=== PATIENT | female | born 1955 | race Caucasian/White ===

== ENCOUNTER → 2018-03-29 15:06 | Outpatient (CLI) | payer OTHER, SELFPAY ==
[2018-03-29 18:05] LABS: Free T3 2.5 pg/mL (2.18-3.98); T4 Free Direct 0.98 ng/dL (0.76-1.46)
[2018-03-30 08:28] LABS: Vitamin D,25 Hydroxy 57.9 ng/mL (29.95-100.01)
== END ==
PROVIDERS: Family Provider Family Medicine; PCP Family Medicine; Visit Provider Family Medicine
DX: E03.9 Hypothyroidism, unspecified (principal)
CPT/HCPCS: 36415; 76536; 82306; 84439; 84443; 84481

== ENCOUNTER → 2018-06-07 16:17 | Outpatient (CLI) | payer OTHER, SELFPAY ==
--- NOTE | 2018-06-07 16:18 | BI_ITS ---
MAMMOGRAPHY - BILATERAL SCREENING REASON FOR EXAM: Female, 62 years old. Routine annual screening examination. PERTINENT HISTORY: Non-contributory. TECHNIQUE: Digital bilateral breast aubrey (3D mammographic acquisition) in the CC and MLO projections. 2-D mediolateral oblique (MLO) and craniocaudad (CC) views of both breasts were obtained. CAD: Full Field Digital Mammography with Computer Added Detection was performed. COMPARISON: Comparison is made with prior study dated May 24, 2017 and May 07, 2016. FINDINGS: Breast Composition: There are scattered areas of fibroglandular density. There are no dominant masses or suspicious calcifications. Stable appearance of the bilateral axillary lymph nodes. No other significant abnormalities are identified. There has been no significant change since the prior study. BI/SCREENING MAMM (CAD), BILAT IMPRESSION: Stable bilateral screening mammogram. Yearly follow-up mammogram recommended. (A) ASSESSMENT CATEGORY: BIRADS Category 2: Benign. A letter regarding these results will be sent to the patient by the facility within 30 days. Approximately 10% of breast cancers are not detected by mammography. A normal mammogram should not delay biopsy of a clinically suspicious abnormality. [id number] Electronically Signed: Karthikeyan Gupta MD at 8:17 EDT Tel [phone], Service support ,
== END ==
PROVIDERS: Family Provider Family Medicine; PCP Family Medicine; Referring Provider Obstetrics & Gynecology; Visit Provider Obstetrics & Gynecology
DX: Z12.31 Encounter for screening mammogram for malignant neoplasm of breast (principal)
CPT/HCPCS: 77063; 77067

== ENCOUNTER → 2019-04-04 14:12 | Outpatient (CLI) | payer OTHER, SELFPAY ==
--- NOTE | 2019-04-04 14:15 | US_ITS ---
STUDY: THYROID ULTRASOUND REASON FOR EXAM: Female, 63 years old. Nodule TECHNIQUE: Ultrasound evaluation of the thyroid was performed with real-time and static shafer-scale imaging. COMPARISON: 03/29/2018 FINDINGS: RIGHT LOBE: Previously removed LEFT LOBE: The left lobe of the thyroid gland measures 4.7 x 2.0 x 2.0 cm. There is a heterogeneous echotexture. 2 separate hyperechoic solid nodules, larger measures 7 mm, smaller 5 mm ISTHMUS: The isthmus measures 0.9 cm. There is a stable 1.4 x 1.5 x 0.9 cm isthmus nodule The regional lymph nodes are normal. US/Thyroid IMPRESSION: Previous removal of the right lobe of the thyroid Hypoechoic solid nodules in the left lobe since the previous study, larger measures 7 mm, smaller 5 mm. Six-month follow-up recommended to assure stability Stable 1.4 x 1.5 x 0.9 cm isthmus nodule Electronically Signed: Jesus Whitlock MD at 16:41 EDT , Service support ,
[2019-04-04 18:37] LABS: Anion Gap 5 (5-15); BUN 17 mg/dL (7-18); BUN/Creat Ratio 21.1 RATIO (10-20); Calcium,Total 8.9 mg/dL (8.5-10.1); Chloride 107 mmol/L (98-107); Cholesterol 238 mg/dL (200); EST Glomerular Filtration Rate 77 mL/min (>60); Est Glom Filt Rate - Afr Amer 93 mL/min (>60); Free T3 2.7 pg/mL (2.18-3.98); Glucose 97 mg/dL (74-106); High Density Lipoprotein 39 mg/dL; Potassium 4.1 mmol/L (3.5-5.1); Sodium Level 142 mmol/L (136-145); T4 Free Direct 1.01 ng/dL (0.76-1.46); Thyroid Stim Hormone (TSH) 1.63 uIU/mL (0.358-3.74); Triglycerides 417 mg/dL
== END ==
PROVIDERS: Family Provider Family Medicine; PCP Family Medicine; Referring Provider Family Medicine; Visit Provider Family Medicine
DX: E03.9 Hypothyroidism, unspecified (principal); E04.1 Nontoxic single thyroid nodule; Z13.220 Encounter for screening for lipoid disorders
CPT/HCPCS: 36415; 76536; 80048; 80061; 84439; 84443; 84481

== ENCOUNTER → 2019-04-22 08:10 | Outpatient (CLI) | payer OTHER, SELFPAY ==
[2019-04-22 09:45] LABS: Cholesterol 249 mg/dL (200); High Density Lipoprotein 47 mg/dL; Triglycerides 221 mg/dL; Very Low Density Lipoprotein 44 mg/dL (5-40)
== END ==
PROVIDERS: Family Provider Family Medicine; PCP Family Medicine; Referring Provider Family Medicine; Visit Provider Family Medicine
DX: E78.5 Hyperlipidemia, unspecified (principal)
CPT/HCPCS: 80061

== ENCOUNTER → 2019-06-09 14:46 | Outpatient (CLI) | payer OTHER, SELFPAY ==
--- NOTE | 2019-06-09 14:47 | BI_ITS ---
MAMMOGRAPHY - BILATERAL SCREENING REASON FOR EXAM: Female, 63 years old. Routine annual screening examination. PERTINENT HISTORY: Non-contributory. TECHNIQUE: Digital bilateral breast nereyda (3D mammographic acquisition) in the CC and MLO projections. 2-D mediolateral oblique (MLO) and craniocaudad (CC) views of both breasts were obtained. CAD: Full Field Digital Mammography with Computer Added Detection was performed. COMPARISON: Comparison is made with prior study dated June 07, 2018 and May 24, 2007. FINDINGS: Breast Composition: There are scattered areas of fibroglandular density. There are no dominant masses or suspicious calcifications. Stable benign-appearing bilateral axillary lymph nodes. No other significant abnormalities are identified. There has been no significant change since the prior study. BI/SCREEN MAMM (CAD) W/NEREYDA BILAT IMPRESSION: Stable bilateral screening mammogram. Yearly follow-up mammogram recommended. (A) ASSESSMENT CATEGORY: BIRADS Category 2: Benign. A letter regarding these results will be sent to the patient by the facility within 30 days. Approximately 10% of breast cancers are not detected by mammography. A normal mammogram should not delay biopsy of a clinically suspicious abnormality. [id number] Electronically Signed: Karthikeyan Gupta, at 8:54 EDT , Service support ,
== END ==
PROVIDERS: Family Provider Family Medicine; PCP Family Medicine; Referring Provider Obstetrics & Gynecology; Visit Provider Obstetrics & Gynecology
DX: Z12.31 Encounter for screening mammogram for malignant neoplasm of breast (principal)
CPT/HCPCS: 77063; 77067

== ENCOUNTER → 2019-10-05 15:52 | Outpatient (CLI) | payer OTHER, SELFPAY ==
--- NOTE | 2019-10-05 15:53 | US_ITS ---
STUDY: THYROID ULTRASOUND REASON FOR EXAM: Female, 63 years old. LT NODULE F/U TECHNIQUE: Ultrasound evaluation of the thyroid was performed with real-time and static shafer-scale imaging. COMPARISON: April 04, 2019 FINDINGS: RIGHT LOBE: Has been surgically removed. LEFT LOBE: The left lobe of the thyroid gland measures 5.2 x 1.9 x 2.3 cm. There is a 1.3 x 1.5 x 0.8 cm nodule. There is a 0.5 x 0 0.5 to 0.5 cm nodule. There is a 0.5-0 0.5 x 0.4 nodule in the left thyroid lobe remaining. The overall vascularity of the left thyroid is increased. ISTHMUS: The isthmus measures 0.5 cm . The regional lymph nodes are normal. US/Thyroid IMPRESSION: Large lobulated left thyroid gland with increased vascularity with similar nodularity when compared to the prior study. Recommend correlation with laboratory values and follow-up ultrasound. Electronically Signed: Tiny Nice MD at 18:03 EST Tel , Service support ,
== END ==
PROVIDERS: PCP Family Medicine; Referring Provider Family Medicine; Visit Provider Family Medicine
DX: E04.1 Nontoxic single thyroid nodule (principal)
CPT/HCPCS: 76536

== ENCOUNTER → 2019-12-06 | Outpatient (CLI) | payer OTHER, SELFPAY ==
--- NOTE | 2019-12-06 | ASPS_PTH ---
PATIENT: JOSIAH ROMAN LOC: [facility] U#:[id number] AGE/SX: 63/F ROOM: RE12/06/[address]: Dr. Yordy López MD : 1955 BED: DIS: 12/06/2019 SPEC #: [id number] RECD: 12/06/19 15:54 STATUS: JOSHUA ANDREZ #: [id number] JOE: 12/06/19 00:[address]: Yordy López DEPT: CYTOLOGY RECD BY: Du Redmond ENTERED: 12/07/19 10:25 SP TYPE: ASPIRATION OTHR DR: Dr. Jd Birch MD Tissues: Thyroid gland, NOS Procedures: Special Stain Group II Cytology Other HEADER OPERATION: Left thyroid FNA PRE-OP DIAGNOSIS: Multiple thyroid nodules TISSUE SUBMITTED: Left thyroid slides x6 DIAGNOSIS CYTOLOGY Fine needle aspiration, left thyroid nodule (smears): Adequate for evaluation. 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 Chronic lymphocytic thyroiditis. AM:morgan 12/08/19 COMMENT Reference is made to the patient's previous left thyroid fine needle aspiration from 2013 ([id number]) in which chronic lymphocytic thyroiditis was identified. Case has been reviewed in consultation with Dr. Obregon who concurs with the above diagnosis. IDC:SJ CYTOLOGY STUDY Slides are reviewed. CYTOLOGY GROSS Received are six smears labeled with the patient's name and designated per the requisition as left thyroid. Submitted for staining. / morgan 12/07/19 TC:? CPT: 41556
[2019-12-06 14:01] VITALS: BMI 30.9
== END | disposition home or self-care (01) ==
LOC: LABSPEC 16:01
PROVIDERS: PCP Family Medicine; Referring Provider Surgery; Visit Provider Surgery
DX: E04.2 Nontoxic multinodular goiter (principal)
CPT/HCPCS: 88161; 88313

== ENCOUNTER 2020-06-05 05:30 | Day surgery (SDC) | payer OTHER, SELFPAY ==
[2020-05-13 15:13] VITALS: BMI 30.9
--- NOTE | 2020-05-28 16:07 | EKG12_ITS ---
Test Reason : PREOP Blood Pressure : / mmHG Vent. Rate : 093 BPM Atrial Rate : 093 BPM P-R Int : 138 ms QRS Dur : 080 ms QT Int : 362 ms P-R-T Axes : 045 003 009 degrees QTc Int : 450 ms Normal sinus rhythm Nonspecific ST abnormality Abnormal ECG Confirmed by NENA GOMEZ, JAY ([id number]), film editor supervisor NAMRATA VILLARREAL ([id number]) on 05/29/2020 9:25:41 AM Referred By: Yordy López Confirmed By:JAY BARRETT MD
[2020-05-28 16:58] LABS: Hematocrit 42.7 % (37-47); Hemoglobin 14.1 g/dL (12.0-15.0); Mean Corpuscular Hgb 29.9 pg (27.0-32.0); Mean Corpuscular Volume 90.5 fL (81-99); Mean Platelet Vol. 9.8 fl (6.2-12.0); Platelet Count 302 K/mm3 (150-450); RBC Distribution Width CV 12.4 % (11.6-14.6); RBC Distribution Width SD 40.9 fl (35.1-43.9); Red Blood Count 4.72 M/mm3 (4.2-5.4); White Blood Count 5.7 K/mm3 (4.4-11.0)
[2020-05-28 17:30] LABS: Anion Gap 6 (5-15); BUN 19 mg/dL (7-18); Calcium,Total 9.3 mg/dL (8.5-10.1); Chloride 102 mmol/L (98-107); Creatinine, Serum 0.82 mg/dL (0.55-1.02); EST Glomerular Filtration Rate 74 mL/min (>60); Est Glom Filt Rate - Afr Amer 90 mL/min (>60); Glucose 93 mg/dL (74-106); Phosphorus 3.3 mg/dL (2.5-4.9); Potassium 3.9 mmol/L (3.5-5.1); Sodium Level 139 mmol/L (136-145)
[2020-06-05] VITALS (9 sets, daily range): BP systolic 151–182; BP diastolic 81–98; PULSE 79–101; RESP 16–17; TEMP 36.3–36.8; O2SAT 93–99; BMI 30.7
--- NOTE | 2020-06-05 05:40 | PCM.HP.BLA ---
Problem List (1) Left thyroid nodule Status: Acute History and Physical Date of Admission: 06/05/20 Intake Visit Reasons: update H&P for thyroid sx in May Chief Complaint: update H&P for thyroid surgery Allergies No Known Allergies Allergy (Verified 05/13/20 15:13) Medications cholecalciferol (vitamin D3) 100 mcg (4,000 unit) capsule 5,000 unit PO DAILY cap 10/17/19 [History Confirmed 05/13/20] levothyroxine 100 mcg capsule 100 mcg PO DAILY 10/17/19 [History Confirmed 05/13/20] multivitamin 1 cap PO DAILY 10/17/19 [History Confirmed 05/13/20] PFSH Medical History Left thyroid nodule (Acute) Multiple thyroid nodules (Acute) Difficulty swallowing (Acute) Thyroid nodule (Acute) Surgical History Status post biopsy of thyroid gland (Acute ~11/2019) history right thyroidectomy (Acute) Family History Mother Arthritis Hyperlipidemia Father Hypertension Hyperlipidemia Social History (Updated 05/13/20 @ 15:[address] Yordy López MD) Smoking Status: Never smoker alcohol intake: never substance use type: does not use HPI HPI HPI: JOSIAH ROMAN, is a 64 F who presents to the office today for February 19, 2020. The patient also was seen March 06, [address] Fredis Malagon. It is felt reasonable to pursue a left thyroid lobectomy. As noted below a fine needle aspiration shows Hurthle cell findings and atypical cells of the left thyroid of indeterminate significance. 10 years ago I performed a right thyroid lobectomy for which demonstrated an incidental microcarcinoma. My previous discussions include the following. HPI: JOSAIH ROMAN, is a 64 F who presents to the office today for surgical follow-up of an ultrasound guided fine needle aspiration performed of the left thyroid on December 06, 2019 with the following cytology. This follow-up appointment has been somewhat delayed secondary to the Covid-19 pandemic. 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 AM:morgan 12/08/19 COMMENT Reference is made to the patient's previous left thyroid fine needle aspiration from 2013 ([id number]) in which chronic lymphocytic thyroiditis was identified My previous notes reflect the following: HPI: JOSIAH ROMAN, is a 63 F who presents to the office today for surgical consultation regarding thyroid nodules. The patient is referred by her primary care is a Dr. Jd Birch and a written copy of my surgical consult recommendations will be returned to him. 63-year-old female. She reminds me that she is previously had a right thyroid lobectomy. She believes that that was approximately 10 years ago. She suggests that at the time there was a microcarcinoma identified. She did not require any additional treatment. She was seen by Dr. Marck Allison endocrinology for period of time. She has not recently been seen by an signal mechanic. Occasionally she can notice a thyroid nodule that is persistent in her left thyroid. As routine follow-up on October 07, 2019 at the [facility] the patient had a thyroid ultrasound performed. The left lobe measures 5.2 x 1.9 x 2.3 cm. There is a 1.3 x 1.5 x 0.8 cm nodule close to the isthmus. There is a 0.5 x 0.5 x 0.5 cm nodule and there is an additional 0.5 x 0.5 x 0.4 cm nodule. The overall vascularity of the left thyroid is increased. Regional lymph nodes are felt to be normal. A Ti RADS grade was not provided. The patient is already on levothyroxine 100 mcg daily. In addition she requires vitamin D supplementation. Looking at some of the laboratory provided suggesting April 04, 2019 she had a cholesterol level of 238 and a triglyceride level 417. At that time her free T3 is 2.7 and TSH is 1.63 and T4 free direct was 1.01 all normal. HPI HPI HPI: JOSIAH ROMAN, is a 64 F who presents to the office today for ROS General General: No weight change, appetite, fatigue, colon cancer, breast cancer or weakness HEENT HEENT: Yes difficulty swallowing; no eye injury, eye surgery, swollen glands or hoarseness Endo Endocrine: No thyroid disease, diabetes mellitus, thyroid cancer, Hair loss, heat intolerance or cold intolerance Skin Skin: No rash or changing moles Breast Breast: No left breast lump, right breast lump, nipple discharge, breast pain, abnormal mammogram, abnormal US or breast enlargement Musc Musculoskeletal: No back problems, arthritis, rheumatoid arthritis, gout or joint pain Cardio Cardiovascular: No murmur, pacemaker, heart disease, atrial fibrillation, high blood pressure, heart attack, heart stent, palpitations, shortness of breat with exertion or chest pain Psych Psychiatric: No depression, anxiety or hearing voices Resp Respiratory: No shortness of breath, No sleep apnea, No cough, No COPD, No asthma, No emphysema, No wheezing Gastro Gastrointestinal: No abdominal pain, No nausea or vomiting, No diarrhea, No constipation, No blood in stool, No acid reflux, No hemorrhoids, No ulcers, No gallbladder problem, No black,tarry stools Minh Hematologic: No blood thinners, No blood disorders, No bleeding, No anemia, No blood clots Neuro Neurologic: No weakness Exam Const General: cooperative, healthy appearing, comfortable, no acute distress Nutritional Appearance: obese Orientation: alert, awake, oriented x3 HENMT Other: Nicely healed transverse suprasternal incision. Palpable left thyroid enlargement. Carotids are 3+. No bruits Eyes General: appearance normal, both eyes and all related structures Neck Carotids: normal carotid upstroke, no bruits Lymphatic: no lymphadenopathy noted Chest Chest palpation & inspection: normal inspection of the chest Breast Palpation: No nipple discharge Resp Effort & Inspection: normal respiratory effort Auscultation: clear to auscultation bilaterally Cardio Rate: regular rate Rhythm: regular rhythm Heart Sounds: no murmurs GI Palpation: soft, no hepatosplenomegaly Musc Cervical Spine: normal cervical lordosis Skin General: no rashes or lesions noted Neuro Cognition: normal cognition Other: Chvostek is negative Extrem General: no calf tenderness Psych Affect: anxious affect Assessment & Plan Problems 1. Left thyroid nodule E04.1 Plan Plan 64-year-old female status post ultrasound-guided fine needle aspiration of a left thyroid nodule. Atypical cells of unknown certain significance and Hurthle cell findings identified. This is addition to chronic lymphocytic thyroiditis. As noted approximately 10 years ago she had a right thyroid lobectomy or the ultimate nodule removed was benign however an incidental microcarcinoma identified. Today was a consultative appointment. We discussed the finding of thyroiditis we discussed the redo surgery we discussed the previous findings of the microcarcinoma. In addition we discussed technique, benefit, risk of alternatives including potential injury to recurrent laryngeal nerve and parathyroids. In addition we discussed the ongoing Covid-19 pandemic. The patient has been seen in consultation by Dr. Juan Carlos Cochran. She returns now to schedule the left thyroid lobectomy. We again reiterated the technical aspects. I plan a elliptical reexcision of her previous nicely healed scar. Anticipate careful inspection for recurrent laryngeal nerve and parathyroids. She is aware of the presence of Covid-19 however the [facility] is reporting a low local incidence. She is aware that I may be able to achieve this strictly as an outpatient. She is aware of technique, benefit, risk of alternatives. We will schedule and plan at her discretion. I appreciate the ongoing opportunity of assisting with her surgical care. Copy: Dr. Jd Birch and Dr. Fredis López M.D., F.A.C.S. Coding Level of Care Code Off vis,est,level 2 Diagnoses Left thyroid nodule E04.1 I have re-examined the patient. There are no clinical changes since date of exam. Procedure Criteria Procedure Type: Elective COVID Risk Discussion: The surgeon/proceduralist and patient have discussed in detail the risk of exposure to and/or potential harm posed by the COVID-19 virus with having a surgery/procedure at this time versus the risk of delaying the surgery/procedure. It is not possible to know either the risk of delaying the surgery or procedure or chance of getting an infection with perfect accuracy, but a joint decision was made between the patient and the surgeon/proceduralist to proceed at this time with the scheduled surgery/procedure as indicated on the consent form.
[2020-06-05] MEDS: Lactated Ringers 1,000 ML 100 ML IV ×2 (06:36→09:57)
--- NOTE | 2020-06-05 07:15 | THYROID_PTH ---
PATIENT: JOSIAH ROMAN [place] [facility] [place][id number] AGE/SX: 64/F ROOM: RE06/05/[address]: Dr. Yordy López MD : 1955 BED: DIS: 06/05/2020 SPEC #: [id number] RECD: 06/05/20 09:59 STATUS: JOSHUA ANDREZ #: [id number] JOE: 06/05/20 07:[address]: Yordy López DEPT: SURGICAL PATHOLOGY RECD BY: Sneha Ahumada ENTERED: 06/05/20 10:19 SP TYPE: THYROID OTHR DR: Dr. Jd Birch MD Tissues: Thyroid gland, NOS Procedures: Surgery Specimen Level V HEADER OPERATION: Completion of total thyroidectomy PRE-OP DIAGNOSIS: Left thyroid nodule TISSUE SUBMITTED: Left thyroid lobe, suture anterior superior aspect of left lobe MICROSCOPIC DIAGNOSIS Left thyroid lobe, lobectomy (completion total thyroidectomy): Chronic lymphocytic thyroiditis. 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 Multinodular goiter. Two benign perithyroidal lymph nodes. SJ:morgan 06/07/20 SJ:morgan 06/10/20 COMMENT Please make reference to previous specimen ([id number]) fine needle aspiration, left thyroid nodule with diagnosis of adequate for evaluation, atypia of undetermined significance with Hurthle cell features and chronic lymphocytic thyroiditis. MICROSCOPIC DESCRIPTION Slides are reviewed. GROSS DESCRIPTION Received in fixative is one container labeled with the patient's name and designated left thyroid lobe, suture anterior superior aspect of left lobe. The specimen consists of a thyroid lobectomy specimen weighing 13.1 gm and measuring 4.5 x 4 x 2 cm. The specimen is oriented by a suture at anterior superior aspect. The specimen is inked as follows: anterior surface - blue, posterior surface - black. Sections reveal ill-defined multinodular cut surfaces with nodule measuring 0.3 to 0.5 cm in greatest dimension. No encapsulated nodule is noted. The entire specimen is submitted in 11 cassettes. Cassette 1 contains the most superior portion and cassette 11 contains the inferior portion. / JOSSELINE:morgan 06/06/20 TC:1 CPT: 56052
--- NOTE | 2020-06-05 07:15 | THYROID_PTH ---
PATIENT: JOSIAH ROMAN LOC: [facility] – [place] U#:[id number] AGE/SX: 64/F ROOM: RE06/05/[address]: Dr. Yordy López MD : 1955 BED: DIS: 06/05/2020 SPEC #: [id number] RECD: 06/05/20 09:59 STATUS: JOSHUA ANDREZ #: [id number] JOE: 06/05/20 07:[address]: Yordy López DEPT: SURGICAL PATHOLOGY RECD BY: Sneha Ahumada ENTERED: 06/05/20 10:19 SP TYPE: THYROID OTHR DR: Dr. Jd Birch MD Tissues: Thyroid gland, NOS Procedures: Surgery Specimen Level V HEADER OPERATION: Completion of total thyroidectomy PRE-OP DIAGNOSIS: Left thyroid nodule TISSUE SUBMITTED: Left thyroid lobe, suture anterior superior aspect of left lobe MICROSCOPIC DIAGNOSIS Left thyroid lobe, lobectomy (completion total thyroidectomy): Chronic lymphocytic thyroiditis. 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 Multinodular goiter. Two benign perithyroidal lymph nodes. SJ:morgan 06/07/20 COMMENT Please make reference to previous specimen ([id number]) fine needle aspiration, left thyroid nodule with diagnosis of adequate for evaluation, atypia of undetermined significance with H?rthle cell features and chronic lymphocytic thyroiditis. MICROSCOPIC DESCRIPTION Slides are reviewed. GROSS DESCRIPTION Received in fixative is one container labeled with the patient's name and designated left thyroid lobe, suture anterior superior aspect of left lobe. The specimen consists of a thyroid lobectomy specimen weighing 13.1 gm and measuring 4.5 x 4 x 2 cm. The specimen is oriented by a suture at anterior superior aspect. The specimen is inked as follows: anterior surface - blue, posterior surface - black. Sections reveal ill-defined multinodular cut surfaces with nodule measuring 0.3 to 0.5 cm in greatest dimension. No encapsulated nodule is noted. The entire specimen is submitted in 11 cassettes. Cassette 1 contains the most superior portion and cassette 11 contains the inferior portion. / JOSSELINE:morgan 06/06/20 TC:1 CPT: 87660
--- NOTE | 2020-06-05 07:16 | PCM.DC.GS ---
Discharge Diet: Light diet - advance as tolerated - if you have questions about your diet instructions, please talk to you doctor. Discharge Activity: May Not Drive - for 1 week or while taking narcotic pain medicine. May shower in (days): 1 Lifting Restrictions: 10 pounds Call your doctor if your incision/area has: Continuous Slow Oozing, Sudden Increased Bleeding, Increased Pain/ Swelling, Increased Redness, Foul Smelling Discharge Call your doctor if you observe: Fever of 101 or Higher Suture Line Care: Avoid Pulling/Pushing, Avoid Pinching/Bending Additional Dressing/Incision Instructions:: May remove your dressing tomorrow. You may shower over your surgical glue. The surgical glue should gradually wear off in 1 to 2 weeks. Allergies/Adverse Reactions: Allergies No Known Allergies Allergy (Verified 06/05/20 06:05) Medications to take at Discharge cholecalciferol (vitamin D3) 100 mcg (4,000 unit) capsule 5,000 unit PO DAILY cap 10/17/19 levothyroxine 100 mcg capsule 100 mcg PO 1530 10/17/19 multivitamin 1 cap PO DAILY 10/17/19 lisinopril 10 mg tablet 10 mg PO QHS 05/16/20 Triamcinolone Acetonide [Nasacort] 1 spray NS PRN PRN 05/28/20 Hydrocodone Bitart/Apap 5-325 [[place] 5MG-325MG] 1 tablet PO Q6H PRN PRN 2 Days #5 tablet 06/05/20 The following prescriptions were given: Hydrocodone Bitart/Apap 5-325 [[place] 5MG-325MG] 1 tablet PO Q6H PRN PRN 2 Days #5 tablet PRN Reason: Pain Transmission Status: Sent to [facility] Primary Care Physician: Jd Birch MD [Primary Care Provider] - Test Results: Test results from this visit will be discussed in further detail at your follow-up appointment, if applicable. Please Follow Up With: Yordy López MD - [phone] When: Call to make an appointment to be seen in about 10 days.
[2020-06-05] MEDS: Bupivacaine Mpf 0.5% 30 ML VIAL (08:50)
--- NOTE | 2020-06-05 08:53 | PCM.OPRPT ---
Problem List (1) Left thyroid nodule Status: Acute Report of Operation Date of Procedure: 06/05/20 Pre-Operative Diagnosis: Left thyroid nodule with atypical fine-needle aspiration Post-Operative Diagnosis: Same Surgery/Procedure Performed:: Completion left thyroid lobectomy Description of Surgical Findings:: Timeout and informed consent was obtained. Patient was taken to the operating placed supine on the table underwent general endotracheal intubation anesthesia. The neck was gently extended prepped in a routine fashion. Clean procedure no antibiotics required. The patient has had a previous right thyroid lobectomy and isthmusectomy. The skin scar was transversely elliptically excised. The scar tissue was discarded. Sharp dissection carried down through the subtendinous tissue. Platysmal flaps were raised with electrocautery. Strap muscles were incised vertically. The left lobe identified and then tedious blunt and sharp and harmonic scalpel dissection performed. Thyroid appeared to be somewhat firm in nature almost consistent with a thyroiditis. Carefully the inferior pole was initially freed then I addressed the superior pole which extended superiorly for significant distance. The superior parathyroid was cleanly identified and carefully protected. Upon circumferentially dissecting free superior pole area inferior pole area and secured in the middle thyroidal vein I could then elevate the left lobe of the thyroid and identify the course of the recurrent laryngeal nerve. The ligament is extraordinarily snug. Careful mosquito dissection harmonic scalpel dissection was used were indicated. Hemoclips were additional utilized for hemostasis were indicated. The thyroid was then carefully dissected off the anterior surface of the trachea. A suture was placed in the anterior superior aspect of the left lobe. Hemostasis was intact. Blood loss throughout minimal. The superior parathyroid on the left cleanly identified and preserved. Recurrent laryngeal nerve course identified and preserved. A piece of fibrillar was placed in the left neck to further secure hemostasis. The strap muscles were approximated midline with interrupted 3-0 Vicryl. Subdermal tissues approximated with the same. Skin edges approximated with interrupted subdermal sutures of 5-0 Vicryl. Dermabond was applied followed by Telfa and tape dressings. Sponge and instrument and needle counts were reported to the surgeon to be correct. Specimen left thyroid lobe. Drains none. Blood loss minimal. Yordy López M.D., F.A.C.S. Type of Anesthesia:: General Anesthesiologist: Carson Santos
== END 2020-06-05 12:32 | disposition home or self-care (01) ==
LOC: SDC 05:30 → AC 05:31
PROVIDERS: Anesthesiology; PCP Family Medicine; Referring Provider Surgery; Visit Provider Surgery
PROC: (CPT 60260; principal; 2020-06-05 07:00)
DX: D34 Benign neoplasm of thyroid gland (principal); E04.2 Nontoxic multinodular goiter; E06.3 Autoimmune thyroiditis; Z20.828 Contact with and (suspected) exposure to other viral communicable diseases; R13.10 Dysphagia, unspecified; I10 Essential (primary) hypertension; Z79.890 Hormone replacement therapy
CPT/HCPCS: 00320; 60260; 36415; 80048; 84100; 85027; 87635; 88307; 93005; C9803; J7120; J2405; U0003

== ENCOUNTER → 2020-07-01 15:56 | Outpatient (CLI) | payer OTHER, SELFPAY ==
[2020-06-05 06:08] VITALS: BMI 30.7
[2020-07-01 18:48] LABS: Vitamin D,25 Hydroxy 41.3 ng/mL
[2020-07-01 18:55] LABS: Calcium,Total 9.1 mg/dL (8.5-10.1); T4 Free Direct 1.01 ng/dL (0.76-1.46); Thyroid Stim Hormone (TSH) 9.56 uIU/mL (0.358-3.74)
== END ==
PROVIDERS: PCP Family Medicine; Referring Provider Internal Medicine Endocrinology, Diabetes & Metabolism; Visit Provider Internal Medicine Endocrinology, Diabetes & Metabolism
DX: E03.9 Hypothyroidism, unspecified (principal); E55.9 Vitamin D deficiency, unspecified
CPT/HCPCS: 36415; 82306; 82310; 84439; 84443

== ENCOUNTER → 2020-08-15 08:30 | Outpatient (CLI) | payer OTHER, SELFPAY ==
[2020-06-05 06:08] VITALS: BMI 30.7
[2020-08-15 10:32] LABS: T4 Free Direct 0.99 ng/dL (0.76-1.46)
== END ==
PROVIDERS: PCP Family Medicine; Referring Provider Internal Medicine Endocrinology, Diabetes & Metabolism; Visit Provider Internal Medicine Endocrinology, Diabetes & Metabolism
DX: E03.9 Hypothyroidism, unspecified (principal)
CPT/HCPCS: 36415; 84439; 84443

== ENCOUNTER → 2020-10-02 16:08 | Outpatient (CLI) | payer OTHER, SELFPAY ==
[2020-06-05 06:08] VITALS: BMI 30.7
[2020-10-02 18:12] LABS: Cholesterol 294 mg/dL (200); Free T3 2.3 pg/mL (2.18-3.98); High Density Lipoprotein 47 mg/dL; T4 Free Direct 0.94 ng/dL (0.76-1.46); Thyroid Stim Hormone (TSH) 6.25 uIU/mL (0.358-3.74); Triglycerides 304 mg/dL; Very Low Density Lipoprotein 61 mg/dL (5-40)
== END ==
PROVIDERS: PCP Family Medicine; Referring Provider Family Medicine; Visit Provider Family Medicine
DX: E03.9 Hypothyroidism, unspecified (principal); E78.5 Hyperlipidemia, unspecified
CPT/HCPCS: 36415; 80061; 84439; 84443; 84481

== ENCOUNTER → 2020-12-31 16:06 | Outpatient (CLI) | payer OTHER, SELFPAY ==
[2020-06-05 06:08] VITALS: BMI 30.7
[2020-12-31 19:00] LABS: ALB/GLOB Ratio 1.2 RATIO (0.9-2.4); AST(SGOT) 21 U/L (15-37); Alanine Aminotransfer ALT/SGPT 35 U/L (13-56); Albumin, Serum 3.8 g/dL (3.2-5.0); Alkaline Phosphatase 60 U/L (45-117); Anion Gap 6 (5-15); BUN 23 mg/dL (7-18); BUN/Creat Ratio 31.9 RATIO (10-20); Calcium,Total 8.9 mg/dL (8.5-10.1); Chloride 103 mmol/L (98-107); Cholesterol 157 mg/dL (200); Creatinine, Serum 0.72 mg/dL (0.55-1.02); EST Glomerular Filtration Rate 86 mL/min (>60); Est Glom Filt Rate - Afr Amer 105 mL/min (>60); Free T3 2.6 pg/mL (2.18-3.98); Globulin 3.2 g/dL (2.2-4.2); Glucose 93 mg/dL (74-106); High Density Lipoprotein 50 mg/dL; Sodium Level 138 mmol/L (136-145); T4 Free Direct 1.27 ng/dL (0.76-1.46); Thyroid Stim Hormone (TSH) 0.57 uIU/mL (0.358-3.74); Triglycerides 229 mg/dL; Very Low Density Lipoprotein 46 mg/dL (5-40)
== END ==
PROVIDERS: PCP Family Medicine; Referring Provider Family Medicine; Visit Provider Family Medicine
DX: I10 Essential (primary) hypertension (principal); E03.9 Hypothyroidism, unspecified
CPT/HCPCS: 36415; 80053; 80061; 84439; 84443; 84481

== ENCOUNTER → 2021-06-24 07:07 | Outpatient (CLI) | payer OTHER, SELFPAY ==
[2021-06-24 10:50] LABS: Anion Gap 5 (5-15); BUN 18 mg/dL (7-18); BUN/Creat Ratio 22.4 RATIO (10-20); Chloride 106 mmol/L (98-107); Cholesterol 141 mg/dL (200); EST Glomerular Filtration Rate 76 mL/min (>60); Est Glom Filt Rate - Afr Amer 92 mL/min (>60); Glucose 101 mg/dL (74-106); High Density Lipoprotein 55 mg/dL; Potassium 3.8 mmol/L (3.5-5.1); Sodium Level 140 mmol/L (136-145); T4 Free Direct 1.37 ng/dL (0.76-1.46); Triglycerides 154 mg/dL; Very Low Density Lipoprotein 31 mg/dL (5-40)
== END ==
PROVIDERS: PCP Family Medicine; Referring Provider Family Medicine; Visit Provider Family Medicine
DX: E78.5 Hyperlipidemia, unspecified (principal); E03.9 Hypothyroidism, unspecified
CPT/HCPCS: 36415; 80048; 80061; 84439; 84443; 84481

== ENCOUNTER → 2021-07-17 13:58 | Outpatient (CLI) | payer OTHER, SELFPAY ==
--- NOTE | 2021-07-17 14:00 | BI_ITS ---
MAMMOGRAPHY - BILATERAL SCREENING REASON FOR EXAM: Female, 65 years old. Routine annual screening examination. PERTINENT HISTORY: Mother with breast cancer. Prior right breast aspiration and stereotactic breast biopsy. TECHNIQUE: Digital bilateral breast nereyda (3D mammographic acquisition) in the CC and MLO projections. 2-D mediolateral oblique (MLO) and craniocaudad (CC) views of both breasts were obtained. CAD: Full Field Digital Mammography with Computer Added Detection was performed. COMPARISON: Comparison is made with prior study dated 06/09/2019 and 06/07/2018. FINDINGS: Breast Composition: There are scattered areas of fibroglandular density. There are no dominant masses or suspicious calcifications. Stable benign-appearing bilateral axillary lymph nodes. No other significant abnormalities are identified. There has been no significant change since the prior study. BI/SCRN MAMM (CAD)W/NEREYDA BILAT IMPRESSION: Stable bilateral screening mammogram. Yearly follow-up mammogram recommended. (A) ASSESSMENT CATEGORY: BIRADS Category 2: Benign. A letter regarding these results will be sent to the patient by the facility within 30 days. Approximately 10% of breast cancers are not detected by mammography. A normal mammogram should not delay biopsy of a clinically suspicious abnormality. [id number] Electronically Signed: Karthikeyan Gupta MD at 15:06 EST , Service support ,
== END ==
PROVIDERS: PCP Family Medicine; Referring Provider Obstetrics & Gynecology; Visit Provider Obstetrics & Gynecology
DX: Z12.31 Encounter for screening mammogram for malignant neoplasm of breast (principal); Z80.3 Family history of malignant neoplasm of breast
CPT/HCPCS: 77063; 77067

== ENCOUNTER 2021-11-10 18:12 | Observation (INO) | payer OTHER, SELFPAY ==
--- NOTE | 2021-11-05 15:58 | EKG12_ITS ---
Test Reason : PREOP Blood Pressure : / mmHG Vent. Rate : 082 BPM Atrial Rate : 082 BPM P-R Int : 116 ms QRS Dur : 080 ms QT Int : 368 ms P-R-T Axes : 037 012 025 degrees QTc Int : 429 ms Normal sinus rhythm Normal ECG Confirmed by NENA GOMEZ, JAY ([id number]), editor at large NAMRATA VILLARREAL ([id number]) on 11/07/2021 8:48:43 AM Referred By: ESPERANZA Confirmed By:JAY BARRETT MD
[2021-11-05 16:52] LABS: Thyroid Stim Hormone (TSH) 0.85 uIU/mL (0.358-3.74)
[2021-11-05 17:35] LABS: Hematocrit 41.2 % (37-47); Hemoglobin 14.3 g/dL (12.0-15.0); Mean Corp Hgb Conc 34.7 g/dL (32-36); Mean Corpuscular Hgb 30.6 pg (27.0-32.0); Mean Corpuscular Volume 88.2 fL (81-99); Mean Platelet Vol. 10.5 fl (6.2-12.0); Platelet Count 266 K/mm3 (150-450); RBC Distribution Width CV 12.3 % (11.6-14.6); RBC Distribution Width SD 39.9 fl (35.1-43.9); Red Blood Count 4.67 M/mm3 (4.2-5.4)
[2021-11-05 17:50] LABS: Partial Thromboplast Time 29.1 Seconds (24.1-36.2)
[2021-11-05 17:59] LABS: International Normalized Ratio 0.9; Prothrombin Time (Protime)PT. 11.9 SECONDS (11.7-14.9)
[2021-11-05 18:08] LABS: ALB/GLOB Ratio 1.3 RATIO (0.9-2.4); AST(SGOT) 25 U/L (15-37); Alanine Aminotransfer ALT/SGPT 43 U/L (13-56); Albumin, Serum 4.4 g/dL (3.2-5.0); Alkaline Phosphatase 63 U/L (45-117); Anion Gap 6 (5-15); BUN 17 mg/dL (7-18); BUN/Creat Ratio 22.2 RATIO (10-20); Calcium,Total 9.4 mg/dL (8.5-10.1); Chloride 103 mmol/L (98-107); Creatinine, Serum 0.77 mg/dL (0.55-1.02); EST Glomerular Filtration Rate 80 mL/min (>60); Est Glom Filt Rate - Afr Amer 97 mL/min (>60); Globulin 3.3 g/dL (2.2-4.2); Glucose 111 mg/dL (74-106); Protein, Total 7.7 g/dL (6.4-8.2); Sodium Level 139 mmol/L (136-145)
[2021-11-06 09:06] LABS: Magnesium 2.2 mg/dL (1.6-2.6)
--- NOTE | 2021-11-08 17:03 | HP.PCM_ITS ---
History and Physical Date of Admission: 11/10/21 Surgical History and Physical Zoya Enriquez, a 65 year old female 2 0 0 0 2, presents for Vaginal Hysterectomy and AP Repair on November 10, 2021. -- Prolapse Symptoms -- Slight discomfort in lower abdomen, feels pressure, no pain or bleeding. Compares this feeling to what a misplaced tampon would feel like. Prolapsed uterus which began Can feel it more recently. Zoya claims it started pressure feel dropped down more It occurs worsening. It is located in the Vagina. Asso ciated signs and symptoms are Pressure, feeling like its dropping more. Additional comments are: Saw Dr. Zavala who felt bladder not an issue. MEDICATIONS HISTORY: Patient is also takin. levothyroxine 125 mcg tablet, One pill by mouth once a day 2. Multiple Vitamin-Minerals tablet, daily 3. Vitamin D3 50 mcg (2,000 unit) tablet, Two tablets once daily 4. lisinopril 10 mg tablet, One pill by mouth once a day 5. 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; Review of Systems: GENERAL - Denies fever, or chills SKIN - Denies skin changes EYES - Denies visual changes EARS - Denies difficulty hearing NOSE - Denies nasal congestion or bleeding MOUTH - Denies sore throat or difficulty swallowing NECK - Denies pain or swelling RESPIRATORY - Denies shortness of breath or wheezing CARDIOVASCULAR - Denies palpitations or chest pain GASTROINTESTINAL - Denies nausea, vomiting, diarrhea, constipation GENITOURINARY - prolapse uterus- dropping MUSCULOSKELETAL - Denies joint or muscle pain NEUROLOGICAL - Denies localized numbness or weakness PSYCHIATRIC - Denies depression or anxiety ENDOCRINE - Denies heat or cold intolerance, weight loss or gain HEMATO-IMMUNOLOGIC - Denies excesive bleeding with cuts SOCIAL HISTORY: Alcohol Use - denies drinking Smoking - denies smoking Diet - balanced Diet Lifestyle - moderate stress lifestyle and Exercise - walking Seat Belt Use - always Employer - [employer] 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 Maternal history of Cerebrovascular accident(CVA). Mother: CHF, osteoporosis, Hypertension and Heart Disease. Father: Heart Disease and Lung cancer. MENSTRUAL HISTORY: LMP Known?- Postmenopausal, LMP - 03/09/10, Age Onset Menarche - 12 PAST PREGNANCIES: Total Pregnancies - 2; Full Term Pregnancies - 2; Premature - 0; Abortions, Induced - 0; Abortions, Spontaneous - 0; Ectopics - 0; Multiple Births - 0; Living Children - 2 SURGICAL HISTORY: 1. tubal ligation 1982 2. 05/16/2020 Left side of thyroid ; Yordy Cebul 3. 11/22/2009 Right Half of Thyroid Removed ; Yordy López - lump--Micro carcinoma PHYSICAL EXAM BP- 150/80 Sitting, Left arm, large cuff Weight- 176.0 lbs Height- 64 inch BMI:30.2 CONSTITUTIONAL - NAD, well nourished, and well developed SKIN - No rash, lesions, or ulcers HEENT - Normocephalic, PERRLA, EOMI NECK - No nodes, no nuchal rigidity and thyroid normal size and texture LYMPH NODES - Palpation of lymph nodes in neck and groins within normal limits LUNGS - CTA x2 without wheezes, crackles or rales CARDIAC - Regular rate and rhythm without rubs, murmurs, or gallops ABDOMEN - Without hepatosplenomegaly, distention, masses, rebound, or guarding; normal bowel sounds; no hernias EXTREMITIES - No edema or calf tenderness NEUROLOGICAL - Cranial nerves II-XII grossly intact PSYCHIATRIC - A and O to time, place, person, mood and affect External Genitial Vagina - non-tender without lesions Urethra/Urethral Meatus - non-tender Bladder - non-tender Vagina - loss of rugae and mild cystocele; mod rectocele with open perineum Cervix - without cervical motion tenderness and has normal size and features without evident lesions and protrudes to within 1 cm of introitus with tenaculum pull-down Uterus - multiparous size 6 cm & wt 75-125 g Adnexa - clear without masses or tenderness ASSESSMENT/PLAN: 1. Incomplete Uterovaginal Prolapse Discussed options for treatment including pessary us versus proceeding with Vaginal Hysterectomy and AP Repair. Discussed RBAs and all questons answered..
[2021-11-10] VITALS (12 sets, daily range): BP systolic 97–174; BP diastolic 60–98; PULSE 78–110; RESP 15–20; TEMP 36.3–37.1; O2SAT 92–100; BMI 29.9
[2021-11-10] MEDS: Lactated Ringers 1,000 ML 40 ML IV (09:46)
[2021-11-10] MEDS: Gabapentin 600 MG Tablet PO (09:47)
[2021-11-10] MEDS: Acetaminophen 500 MG Tablet 1000 MG PO ×3 (09:47→23:23)
[2021-11-10 10:11] LABS: Bedside Glucose 118 mg/dL (74-106)
--- NOTE | 2021-11-10 11:00 | HYST_PTH ---
PATIENT: JOSIAH ROMAN LOC: [facility] U#:[id number] AGE/SX: 65/F ROOM: [facility]316 RE11/10/[address]: Dr. Sebastian Beltran MD : [id number] BED: 1 DIS: 11/11/2021 SPEC #: [id number] RECD: 11/10/21 15:47 STATUS: JOSHUA MAGUIRE #: [id number] JOE: 11/10/21 11:[address]: Sebastian Beltran DEPT: SURGICAL PATHOLOGY RECD BY: Vicky Jiang ENTERED: 11/11/21 07:59 SP TYPE: HYSTERECT OTHR DR: Dr. Jd Birch MD Tissues: Uterus, NOS Procedures: Decalcification bone/plaque Surgery Specimen Level V HEADER OPERATION: ERAS, vaginal hysterectomy, A & P repair PRE-OP DIAGNOSIS: Uterovaginal prolapse, cystocele, rectocele TISSUE SUBMITTED: Uterus, cervix, vaginal mucosa MICROSCOPIC DIAGNOSIS Uterus, cervix, vaginal mucosa, vaginal hysterectomy and A & P repair: Cervix ? chronic cystic cervicitis and squamous metaplasia. Endometrium ? inactive endometrium with focal cystic changes. Endometrial polyp ? benign endometrial polyp with cystic atrophic changes. Myometrium ? intramural and subserosal leiomyoma with focal calcifications (largest measuring 1.5 cm in greatest dimension). - Focal adenomyosis. Vaginal mucosa ? fragments of squamous mucosa, no pathologic diagnosis. SJ:morgan 11/13/2021 MICROSCOPIC DESCRIPTION Slides are reviewed. GROSS DESCRIPTION Received in fixative is one container labeled with the patient's name and designated uterus, cervix, vaginal mucosa. The specimen consists of a hysterectomy specimen consisting of uterus with cervix and detached fragments of mucosal tissue. The uterus with cervix weighs 74 gm and measures 10.5 x 5 x 3 cm. Two subserosal nodules are noted. The serosal surface is ragged. The ectocervical mucosa is unremarkable. The external os is slit-like in contour. The endocervical canal measures 3.5 cm in length and the endocervical mucosa is joseph, glistening and unremarkable. The triangular endometrial cavity measures 4.5 cm in length and up to 2 cm in width. The anterior endometrial cavity shows a sessile polyp measuring 1.5 cm in greatest dimension. The rest of the endometrium measures 0.1 cm in thickness. Sections of the uterine wall reveal multiple intramural and subserosal nodular masses. The largest mass is subserosal and measures 1.5 cm in greatest dimension. Largest mass cuts with gritty sensation and shows calcified cut surfaces. The uninvolved uterine wall measures up to 1.5 cm in thickness. The detached pieces of mucosal tissue measure in aggregate 4 x 3 x 0.5 cm. No mucosal lesion is identified. Instrumentation dang are noted. Carpet Installer Helper sections are submitted in nine cassettes as follows: 1??anterior cervix, 2 - posterior cervix, 3 & 4 - anterior uterine wall, 5 & 6 - posterior uterine wall (sections of the uterine wall also contain smaller intramural nodular masses), 7??endometrial polyp, entirely submitted, 8 - subserosal nodular masses, submitted after decalcification, 9??mucosal tissue. / SJ:morgan 11/11/2021 TC:1 CPT: 77859, 51796
--- NOTE | 2021-11-10 11:05 | OP.PCM_ITS ---
Report of Operation Date of Procedure: 11/10/21 Pre-Operative Diagnosis: Uterovaginal Prolapse, Cystocele, Rectocele Post-Operative Diagnosis: Uterovaginal Prolapse, Cystocele, Rectocele Surgery/Procedure Performed:: Vaginal Hysterectomy and Anterior Posterior Repair Description of Surgical Findings:: 8 cm uterus. Cervix which protrudes within 1 cm in the introitus. Mild to moderate cystocele and rectocele. Surgeon: Sebastian Beltran school childcare attendant: Nilda Ponce Type of Anesthesia: General (LMA) Anesthesiologist: Sebastian Beltran Specimen's removed: Uterus and vaginal mucosa Drains: Roche to straight drain Estimated Blood Loss (mL): 200 cc Fluids Replaced: Crystalloid Description of Procedure: Surgeon: Sebastian Beltran MD, FACOG Indications: This is a 65-year-old patient who is been having problems with prolapse symptoms. Conservative measures have not been helpful. Given this the patient desires that we proceed the above procedure. She has been counseled regarding the risk and indications of this procedure including the possibility of bleeding, infection, and injury to surrounding structures such as bowel bladder. All questions were answered. Procedure: Patient was taken to the operating room where after induction of general anesthesia she was placed in the dorsal lithotomy position and prepped and draped in the usual sterile fashion. A Roche catheter was placed. Anterior cervix was grasped with a tenaculum and anterior cervix circumscribed with cautery on a setting of 35 W coagulation. Anterior vaginal mucosa was undermined and anterior peritoneum was entered. The posterior aspect of the cervix was circumscribed with a knife and posterior peritoneum entered. Progressive bites were taken on either side of the uterine cervix and each pedicle ligated with 0 Vicryl suture. Superior pedicles were ligated ?2 with 0 Vicryl suture and sidewall pedicles were examined and oversewn where necessary with [id number] 0 Vicryl suture to achieve hemostasis. Posterior vaginal cuff was oversewn with running locked 0 Vicryl suture. Hemostasis was noted and peritoneum was closed in a pursestring fashion incorporating superior pedicles into the stitch. Vaginal cuff was then closed front to back with interrupted jprtje-so-pawtz 0 Vicryl suture. Hemostasis was noted. Attention was turned toward the anterior repair portion of the procedure. Anterior vaginal mucosa was undermined and divided and then imbricated toward the midline with interrupted 0 Vicryl sutures. Vaginal mucosa was trimmed and then closed with interrupted 2-0 chromic suture. Vaginal cuff was then closed front to back with interrupted [id number] 0 Vicryl suture. Hemostasis was noted. Attention was turned toward the posterior repair portion of the procedure. Remnants of the hymenal ring were grasped with Allises and a V-shaped incision was made in the perineum. Rectovaginal mucosa was then undermined divided and then imbricated toward the midline with interrupted 0 Vicryl suture. Vaginal mucosa was trimmed and then closed with running locked 2-0 chromic suture. Remnants of the bulbocavernosus muscles were identified and brought toward the midline with a single veofwr-[id number] 0 Vicryl suture and perineum was closed in the usual fashion with running and subcuticular, and iqpnpr-[id number] 2-0 chromic suture. Hemostasis was noted. Roche catheter was again opened and clear yellow urine was noted. Vagina was packed with a full pack of one inch iodoform tape. Patient tolerated the procedure well was taken to recovery room in satisfactory condition; sponge instrument and needle counts were all reportedly correct. Estimated blood loss for the case was 100 cc. Ancef 2 g IV was given prior to beginning the operative procedure. There were no apparent complications of the surgery. Specimen to pathology was uterus and vaginal mucosa. Grafts/Implants Used: None Complications None Admit VTE Documentation VTE Present on Admission: Yes VTE Mechan Device Prophylaxis: SCD's VTE Pharm Prophylaxis ordered?: Yes
[2021-11-10] MEDS: Cefazolin 2 GM in 0.9% Normal Saline 100 ML IV (11:22)
[2021-11-10] MEDS: Ondansetron 4 MG/2 ML Vial IV (12:52)
[2021-11-10] MEDS: Levothyroxine 125 MCG Tablet PO (17:15)
[2021-11-10] MEDS: Cefazolin 1 GM/50 ML BAG IV (19:11)
[2021-11-10] MEDS: 0.9% Saline Lock 10 ML Syringe IV ×2 (19:11→21:32)
[2021-11-10] MEDS: Lisinopril 10 MG Tablet PO (19:13)
[2021-11-10] MEDS: Enoxaparin 30 MG/0.3 ML Syringe SC (21:32)
[2021-11-10] MEDS: Docusate Sodium 100 MG Capsule PO (21:32)
[2021-11-11 03:11] VITALS: BP 153/81; PULSE 94; RESP 18; TEMP 37.1; O2SAT 97
[2021-11-11] MEDS: Acetaminophen 500 MG Tablet 1000 MG PO (05:50)
[2021-11-11 07:03] LABS: EST Glomerular Filtration Rate 67 mL/min (>60); Est Glom Filt Rate - Afr Amer 81 mL/min (>60); Estimated Creatinine Clearance 54.53 ml/min
[2021-11-11 07:05] LABS: Hematocrit 40.4 % (37-47); Hemoglobin 14.1 g/dL (12.0-15.0); Mean Corp Hgb Conc 34.9 g/dL (32-36); Mean Corpuscular Hgb 31.1 pg (27.0-32.0); Mean Corpuscular Volume 89.2 fL (81-99); Mean Platelet Vol. 9.7 fl (6.2-12.0); Platelet Count 251 K/mm3 (150-450); RBC Distribution Width CV 12.4 % (11.6-14.6); RBC Distribution Width SD 40.6 fl (35.1-43.9); Red Blood Count 4.53 M/mm3 (4.2-5.4); White Blood Count 12.3 K/mm3 (4.4-11.0)
[2021-11-11 07:26] VITALS: O2SAT 94
--- NOTE | 2021-11-11 08:28 | PN.OBGYN_ITS ---
Subjective Subjective Patient without complaints. Tolerating diet well.Vaginal pack removed and minimal vaginal bleeding noted. Good urine output and hemoglobin okay. Creatinine okay. Objective Data Objective Data Vital Signs: Vital Signs Temp Pulse Resp BP Pulse Ox 98.7 F 94 18 153/81 H 97 11/11/21 03:11 11/11/21 03:11 11/11/21 03:11 11/11/21 03:11 11/11/21 03:11 Oxygen Flow Rate (L/min) 2 Oxygen Delivery Method Room Air Weight: 174 lb 2.643 oz Body Mass Index (BMI) 29.9 Intake & Output: Intake and Output for Last 24 Hours 11/09/21 11/10/21 11/11/21 23:59 23:59 23:59 Intake Total 2883.67 / 2883.67 Output Total 725 / 725 1075 / 1075 Balance 2158.67 / 2158.67 -1075 / -1075 Lab / Micro Data Result Diagrams: 11/11/21 06:20 11/11/21 06:20 Labs: Laboratory Results - last 24 hr 11/10/21 09:36: POC Glucose 118 H 11/11/21 06:20: WBC 12.3 H, RBC 4.53, Hgb 14.1, Hct 40.4, MCV 89.2, MCH 31.1, MCHC 34.9, RDW Std Deviation 40.6, RDW Coeff of Nhan 12.4, Plt Count 251, MPV 9.7 11/11/21 06:20: Creatinine 0.90, Estim Creat Clear Calc 54.53, Est GFR (MDRD) Af Amer 81, Est GFR (MDRD) Non-Af 67 Micro: Microbiology 11/05/21 16:00 Interface Orders SARS-CoV-2 Antigen (Rapid) - Final Assessment & Plan (1) Uterovaginal prolapse: PLAN: Doing well postoperative day #1 status post vaginal hysterectomy and anterior posterior repair. Will discharge to home with routine instructions wh en able to void on own.
--- NOTE | 2021-11-11 08:30 | PCM.DC ---
Discharge Instructions Diet Discharge Diet: No restrictions Activity Discharge Activity: May Shower and May Take a Tub Bath May resume sexual activity in: 6 weeks (nothing in the vagina.) Lifting Restrictions: 25 pounds for 6 weeks. Dressing / Incision Call your doctor if you observe: Fever of 101 or Higher, Inability to urinate, Inability to have a bowel movement and Using more than 1 pad per hour Additional Dressing/Incision Instructions:: Nothing in the vagina for 6 weeks please; no lifting more than 20-25 lbs for 6 weeks. Use Ibuprophen 800 mg orally every 8 hours as needed for pain. Can also add Tylenol 1000 mg every 8 hours if needed for pain. If Ibuprophen and Tylenol are not effective then use the Oxycodone but keep in mind it can cause serious constipation issues. Drink lots of water. Call if bleeding more than a pad per hour. Use the colace as constipation is a big issue after this type of surgery. Steps and walking are OK. Activity is encouraged but do not over do it !! Follow Up Care Please Follow Up With: Sebastian Beltran MD When: Call [phone] for an appointment to be seen in 2 weeks. Test Results: Test results from this visit will be discussed in further detail at your follow-up appointment, if applicable. Discharge Plan Admission Admit Date/Time: 11/10/21 18:12 Primary Reason for Your Visit: Vaginal Hysterectomy and AP Repair Attending Provider: Sebastian Beltran Primary Care Provider: Jd Birch Discharge Orders/Prescriptions Prescriptions: New docusate sodium [Colace] 100 mg capsule 100 mg PO BID MDD 200 mg PRN (Reason: constipation) Qty: 60 RF: 1 Continued multivitamin capsule 1 cap PO DAILY RF: 0 cholecalciferol (vitamin D3) 4,000 unit capsule 4,000 unit capsule 4,000 unit PO DAILY RF: 0 lisinopril 10 mg tablet 10 mg PO QHS RF: 0 rosuvastatin [Crestor] 5 mg Tablet 5 mg PO QODAY RF: 0 levothyroxine 112 mcg tablet 125 mcg PO 1500 RF: 0 Referrals / Follow Up: Jd Birch MD [Primary Care Provider] - Disposition Disposition (needs filled in before D/C Order can be placed): Home, Self Care
[2021-11-11 08:38] VITALS: BP 155/95; PULSE 94; RESP 14; TEMP 36.7; O2SAT 100
[2021-11-11] MEDS: Docusate Sodium 100 MG Capsule PO (08:45)
== END 2021-11-11 11:53 | disposition home or self-care (01) ==
LOC: SDC 18:17 → MS3 11-11 08:36
PROVIDERS: Anesthesiology; Admitting Provider Obstetrics & Gynecology; PCP Family Medicine; Referring Provider Obstetrics & Gynecology; Visit Provider Obstetrics & Gynecology
PROC: (CPT 58260; principal; 2021-11-10 10:40)
DX: N81.2 Incomplete uterovaginal prolapse (principal); D68.2 Hereditary deficiency of other clotting factors; N72 Inflammatory disease of cervix uteri; N84.0 Polyp of corpus uteri; D25.1 Intramural leiomyoma of uterus; D25.2 Subserosal leiomyoma of uterus; Z79.890 Hormone replacement therapy; Z79.899 Other long term (current) drug therapy; E78.00 Pure hypercholesterolemia, unspecified; I10 Essential (primary) hypertension; E89.0 Postprocedural hypothyroidism
CPT/HCPCS: 58270; 00944; 36415; 80053; 82565; 82962; 83735; 84443; 85027; 85610; 85730; 86850; 86900; 86901; 87426; 88307; 88311; 93005; 94762; 96365; 96372; 99218; 99251; J7120; A4216; G0378; G0463; J2405; J3475

== ENCOUNTER → 2021-12-31 | Outpatient (CLI) | payer OTHER, SELFPAY ==
[2021-12-31 10:35] LABS: BUN 16 mg/dL (7-18); Creatinine, Serum 0.74 mg/dL (0.55-1.02); EST Glomerular Filtration Rate 84 mL/min (>60); Glucose 107 mg/dL (74-106)
[2021-12-31 10:36] LABS: ALB/GLOB Ratio 1.3 RATIO (0.9-2.4); AST(SGOT) 21 U/L (15-37); Alanine Aminotransfer ALT/SGPT 35 U/L (13-56); Albumin, Serum 3.8 g/dL (3.2-5.0); Alkaline Phosphatase 56 U/L (45-117); Anion Gap 4 (5-15); BUN/Creat Ratio 21.8 RATIO (10-20); Calcium,Total 8.9 mg/dL (8.5-10.1); Chloride 105 mmol/L (98-107); Cholesterol 151 mg/dL (200); Est Glom Filt Rate - Afr Amer 102 mL/min (>60); Free T3 2.8 pg/mL (2.18-3.98); Globulin 2.9 g/dL (2.2-4.2); High Density Lipoprotein 51 mg/dL; Protein, Total 6.7 g/dL (6.4-8.2); Sodium Level 139 mmol/L (136-145); Thyroid Stim Hormone (TSH) 0.88 uIU/mL (0.358-3.74); Triglycerides 127 mg/dL; Very Low Density Lipoprotein 25 mg/dL (5-40)
== END | disposition home or self-care (01) ==
LOC: MTLAB 07:31
PROVIDERS: PCP Family Medicine; Referring Provider Family Medicine; Visit Provider Family Medicine
DX: I10 Essential (primary) hypertension (principal); E03.9 Hypothyroidism, unspecified; E78.5 Hyperlipidemia, unspecified
CPT/HCPCS: 36415; 80053; 80061; 84443; 84481

== ENCOUNTER → 2022-12-16 | Outpatient (CLI) | payer MEDICARE, SELFPAY ==
[2022-12-16 10:31] LABS: ALB/GLOB Ratio 1.2 RATIO (0.9-2.4); AST(SGOT) 22 U/L (15-37); Alanine Aminotransfer ALT/SGPT 35 U/L (13-56); Albumin, Serum 3.8 g/dL (3.2-5.0); Alkaline Phosphatase 57 U/L (45-117); Anion Gap 5 (5-15); BUN 18 mg/dL (7-18); BUN/Creat Ratio 24.4 RATIO (10-20); Chloride 106 mmol/L (98-107); Cholesterol 196 mg/dL (200); Creatinine, Serum 0.74 mg/dL (0.55-1.02); EST Glomerular Filtration Rate 84 mL/min (>60); Est Glom Filt Rate - Afr Amer 101 mL/min (>60); Free T3 2.5 pg/mL (2.18-3.98); Globulin 3.1 g/dL (2.2-4.2); Glucose 100 mg/dL (74-106); High Density Lipoprotein 55 mg/dL; Protein, Total 6.9 g/dL (6.4-8.2); Sodium Level 141 mmol/L (136-145); T4 Free Direct 1.12 ng/dL (0.76-1.46); Thyroid Stim Hormone (TSH) 0.78 uIU/mL (0.358-3.74); Triglycerides 178 mg/dL; Very Low Density Lipoprotein 36 mg/dL (5-40)
== END | disposition home or self-care (01) ==
LOC: MTLAB 09:19
PROVIDERS: PCP Family Medicine; Referring Provider Family Medicine; Visit Provider Family Medicine
DX: I10 Essential (primary) hypertension (principal); E03.9 Hypothyroidism, unspecified; E78.5 Hyperlipidemia, unspecified
CPT/HCPCS: 36415; 80053; 80061; 84439; 84443; 84481

== ENCOUNTER → 2023-01-05 | Outpatient (CLI) | payer MEDICARE, SELFPAY ==
--- NOTE | 2023-01-05 14:23 | BI_ITS ---
MAMMOGRAPHY - BILATERAL SCREENING REASON FOR EXAM: Female, 67 years old. Routine annual screening examination. PERTINENT HISTORY: Mother with breast cancer. TECHNIQUE: Digital bilateral breast nereyda (3D mammographic acquisition) in the CC and MLO projections. 2-D mediolateral oblique (MLO) and craniocaudad (CC) views of both breasts were obtained. CAD: Full Field Digital Mammography with Computer Added Detection was performed. FINDINGS: Breast Composition: There are scattered areas of fibroglandular density. There are no dominant masses or suspicious calcifications. Stable benign-appearing bilateral axillary lymph nodes. No other significant abnormalities are identified. There has been no significant change since the prior study. BI/SCRN MAMM (CAD)W/NEREYDA BILAT IMPRESSION: Stable bilateral screening mammogram. Yearly follow-up mammogram recommended. (A) ASSESSMENT CATEGORY: BIRADS Category 2: Benign. A letter regarding these results will be sent to the patient by the facility within 30 days. Approximately 10% of breast cancers are not detected by mammography. A normal mammogram should not delay biopsy of a clinically suspicious abnormality. Electronically Signed: Hernan Carter MD at 17:10 EDT ,
--- NOTE | 2023-01-05 14:33 | BD_ITS ---
STUDY: DUAL ENERGY X-RAY ABSORPTIOMETRY / DXA REASON FOR EXAM: Female, 67 years old. [id number] TECHNIQUE: Bone Mineral Density (BMD) measurements of lumbar spine and bilateral hips were obtained. COMPARISON: Comparison is made with prior study April 08, 2017. FINDINGS: Lumbar Spine (L1-L4): g/cm2 (1.125) / T-score (0.7) / Z-score (2.5) Findings are suggestive of normal bone density with a low fracture risk. Left Femur Total: g/cm2 (0.918) / T-score (-0.2) / Z-score (1.1) Left Femoral Neck: g/cm2 (0.688) / T-score (-1.5) / Z-score (0.1) Right Femur Total: g/cm2 (0.899) / T-score (-0.3) / Z-score (0.9) Right Femoral Neck: g/cm2 (0.707) / T-score (-1.3) / Z-score (0.3) The T-Scores on the most recent prior examination were: Lumbar Spine (L1-L4): There has been worsening of bone density since the previous examination. Left Femur Total: which represents a worsening of 1.3%. Right Femur Total: which represents a worsening of 4.3%. BD/Dexa Bone Density Study IMPRESSION: The patient is considered osteopenic as outlined below according to World Jona Organization (WHO) criteria with a low fracture risk. There has been worsening of bone density since the previous examination. Reference Information: The T-score is the number of standard deviations above or below the standard which is normal for young adults at their peak bone mineral density. The World Health Organization (WHO) interprets the T-scores as follows: Above -1 Normal bone density Between -1 and -2.5 Osteopenia Equal to / or below -2.5 Osteoporosis As a practical clinical guideline, osteopenia may be graded as follows: Mild -1 through -1.5 Moderate -1.6 through -2.0 Severe -2.1 through -2.4 The Z-score is the number of standard deviations above or below age-matched controls. A Z-score of less than -1.5 would be considered abnormal. References: 1. NIH Osteoporosis and Related Bone Diseases www osteo.org 2. International Society for Clinical Densitometry www iscd.org 3. National Osteoporosis Foundation www nof.org Electronically Signed: Karthikeyan Gupta MD at 11:10 EDT ,
== END | disposition home or self-care (01) ==
PROVIDERS: PCP Family Medicine; Referring Provider Family Medicine; Visit Provider Family Medicine
DX: Z12.31 Encounter for screening mammogram for malignant neoplasm of breast (principal); Z78.0 Asymptomatic menopausal state
CPT/HCPCS: 77063; 77067; 77080

== ENCOUNTER → 2023-12-21 | Outpatient (CLI) | payer MEDICARE, SELFPAY ==
[2023-12-21 10:02] LABS: Hematocrit 38.2 % (37-47); Hemoglobin 12.9 g/dL (12.0-15.0); Mean Corp Hgb Conc 33.8 g/dL (32-36); Mean Corpuscular Hgb 30.2 pg (27.0-32.0); Mean Corpuscular Volume 89.5 fL (81-99); Mean Platelet Vol. 10.1 fl (6.2-12.0); Platelet Count 299 K/mm3 (150-450); RBC Distribution Width CV 12.4 % (11.6-14.6); RBC Distribution Width SD 40.5 fl (35.1-43.9); Red Blood Count 4.27 M/mm3 (4.2-5.4); White Blood Count 4.7 K/mm3 (4.4-11.0)
[2023-12-21 11:04] LABS: ALB/GLOB Ratio 1.3 RATIO (0.9-2.4); AST(SGOT) 23 U/L (15-37); Alanine Aminotransfer ALT/SGPT 33 U/L (13-56); Albumin, Serum 3.8 g/dL (3.2-5.0); Alkaline Phosphatase 54 U/L (45-117); Anion Gap 6 (5-15); BUN 20 mg/dL (7-18); BUN/Creat Ratio 26.1 RATIO (10-20); Calcium,Total 9.2 mg/dL (8.5-10.1); Chloride 105 mmol/L (98-107); Cholesterol 192 mg/dL (200); Creatinine, Serum 0.77 mg/dL (0.55-1.02); EST Glomerular Filtration Rate 80 mL/min (>60); Est Glom Filt Rate - Afr Amer 97 mL/min (>60); Free T3 3.2 pg/mL (2.18-3.98); Glucose 96 mg/dL (74-106); High Density Lipoprotein 52 mg/dL; Potassium 3.9 mmol/L (3.5-5.1); Protein, Total 6.8 g/dL (6.4-8.2); Sodium Level 140 mmol/L (136-145); T4 Free Direct 1.32 ng/dL (0.76-1.46); Thyroid Stim Hormone (TSH) 0.22 uIU/mL (0.358-3.74); Triglycerides 156 mg/dL; Very Low Density Lipoprotein 31 mg/dL (5-40)
== END | disposition home or self-care (01) ==
LOC: MTLAB 07:26
PROVIDERS: PCP Family Medicine; Referring Provider Family Medicine; Visit Provider Family Medicine
DX: E03.9 Hypothyroidism, unspecified (principal); I10 Essential (primary) hypertension
CPT/HCPCS: 36415; 80053; 80061; 84439; 84443; 84481; 85027

== ENCOUNTER → 2024-01-07 | Outpatient (CLI) | payer MEDICARE, SELFPAY ==
--- NOTE | 2024-01-07 10:01 | BI_ITS ---
MAMMOGRAPHY - BILATERAL SCREENING 3-D TOMOSYNTHESIS REASON FOR EXAM: Female, 68 years old. SCREENING PERTINENT HISTORY: No significant family history. TECHNIQUE: 2-D mammograms and 3-D Tomosynthesis of the breast (s) were performed. CAD was performed. COMPARISON: 01/05/2023 FINDINGS: The breast composition is heterogeneously dense that can obscure small breast masses. Scattered benign calcifications are seen. No dense spiculated masses or suspicious microcalcifications are identified. No architectural distortion is identified. There is no skin thickening or retraction. There has been no significant change since the prior study. BI/SCRN MAMM (CAD)W/NEREYDA BILAT IMPRESSION: No mammographic signs of malignancy. Routine yearly mammograms recommended. ASSESSMENT CATEGORY: BIRADS Category 1: Negative. A letter regarding these results will be sent to the patient by the facility within 30 days. FOLLOW UP RECOMMENDATION: Yearly follow up mammogram recommended. (A) Approximately 10% of breast cancers are not detected by mammography. A normal mammogram should not delay biopsy of a clinically suspicious abnormality. Electronically Signed: Navin Calvert MD at 18:34 EDT ,
== END | disposition home or self-care (01) ==
LOC: OPBI 09:59
PROVIDERS: PCP Family Medicine; Referring Provider Family Medicine; Visit Provider Family Medicine
DX: Z12.31 Encounter for screening mammogram for malignant neoplasm of breast (principal)
CPT/HCPCS: 77063; 77067

== ENCOUNTER → 2024-03-22 | Outpatient (CLI) | payer MEDICARE, SELFPAY ==
[2024-03-22 12:40] LABS: Free T3 2.5 pg/mL (2.18-3.98); Thyroid Stim Hormone (TSH) 0.54 uIU/mL (0.358-3.74)
== END | disposition home or self-care (01) ==
LOC: MFPLAB 09:00
PROVIDERS: PCP Family Medicine; Visit Provider Family Medicine
DX: E03.9 Hypothyroidism, unspecified (principal)
CPT/HCPCS: 36415; 84439; 84443; 84481

== ENCOUNTER → 2024-12-26 | Outpatient (CLI) | payer MEDICARE, SELFPAY ==
[2024-12-26 11:02] LABS: Anion Gap 11 (5-15); BUN 25 mg/dL (4-19); BUN/Creat Ratio 31.3 RATIO (10-20); Calcium,Total 9.3 mg/dL (7.6-11.0); Carbon Dioxide 25.8 mmol/L (21.0-32.0); Chloride 104 mmol/L (98-108); Cholesterol 172 mg/dL (<=200); Creatinine, Serum 0.81 mg/dL (0.70-1.20); EST Glomerular Filtration Rate 79 (>60); Free T3 2.8 pg/mL (2.18-3.98); Glucose 109 mg/dL (70-99); High Density Lipoprotein 50 mg/dL; Low Density Lipoprotein Calc. 100 mg/dL; Potassium 4.1 mmol/L (3.3-5.1); Sodium Level 141 mmol/L (133-145); Triglycerides 107 mg/dL; Very Low Density Lipoprotein 21 mg/dL (5-40); Vitamin D,25 Hydroxy 69.3 ng/mL (30-100); cholesterol:hdl ratio screen 3.42
== END | disposition home or self-care (01) ==
LOC: MTLAB 08:56
PROVIDERS: PCP Family Medicine; Referring Provider Family Medicine; Visit Provider Family Medicine
DX: Z00.00 Encounter for general adult medical examination without abnormal findings (principal); E55.9 Vitamin D deficiency, unspecified; E03.9 Hypothyroidism, unspecified
CPT/HCPCS: 36415; 80048; 80061; 82306; 84439; 84443; 84481

== ENCOUNTER → 2025-01-10 | Outpatient (CLI) | payer MEDICARE, SELFPAY ==
--- NOTE | 2025-01-10 13:57 | BI_ITS ---
EXAM: SCRN MAMM (CAD)W/NEREYDA BILAT 01/10/2025 CLINICAL HISTORY: F, Age 69 y/o , SCREENING TECHNIQUE: Bilateral screening digital breast tomosynthesis with 2D and 3D images. Computer aided detection. COMPARISON: Prior exam(s) dated 01/07/2024, 01/05/2023. FINDINGS: TISSUE DENSITY: The breast tissue is composed of scattered area of fibroglandular density. Bilateral Breast Mammographic Findings: No significant masses, calcifications or other abnormalities are identified. BI/SCRN MAMM (CAD)W/NEREYDA BILAT IMPRESSION: Right Breast: BIRADS 1 NEGATIVE. Left Breast: BIRADS 1 NEGATIVE. OVERALL FINAL ASSESSMENT: BIRADS 1 NEGATIVE. RECOMMENDATION: Routine annual follow-up in 1 Year A letter with findings and recommendations will be mailed to the patient. Reading Location: [id number]
--- NOTE | 2025-01-10 14:02 | BD_ITS ---
PROCEDURE: DEXA BONE DENSITY STUDY 01/10/2025 REASON FOR EXAM: F, age 69 y/o . Postmenopausal. TECHNIQUE: DXA scan of sites with data reported below. [facility] COMPARISON: Prior study dated January 05, 2023. FINDINGS: BMD and T-SCORES Lumbar spine: 1.098 g/cm2, T-score 0.5 Levels: L1 through L4 Change from prior: Loss of 2.4%. Left femoral neck: 0.739 g/cm2, T-score -1.0 Femoral neck comparison data not recommended for monitoring change. Left total hip: 0.907 g/cm2, T-score -0.3 Change from prior: Loss of 1.2%. Right femoral neck: 0.721 g/cm2, T-score -1.2 Femoral neck comparison data not recommended for monitoring change. Right total hip: 0.887 g/cm2, T-score -0.4 Change from prior: Loss of 1.4%. The World Health Organization has defined the following categories based on bone density: Normal bone density: T-score equal to or greater than -1.0 Osteopenia: T-score between -1.0 and -2.5 Osteoporosis: T-score equal to or less than -2.5 The patient does meet the pharmacological treatment recommendations for prevention of osteoporosis. BD/Dexa Bone Density Study IMPRESSION: OSTEOPENIA. Recommend follow-up as clinically warranted. Reading Location: [id number]
== END | disposition home or self-care (01) ==
LOC: OPBD 13:56
PROVIDERS: PCP Family Medicine; Referring Provider Family Medicine; Visit Provider Family Medicine
DX: Z13.820 Encounter for screening for osteoporosis (principal); Z78.0 Asymptomatic menopausal state; Z12.31 Encounter for screening mammogram for malignant neoplasm of breast
CPT/HCPCS: 77063; 77067; 77080